=== PATIENT | male | born 1960 | race Caucasian/White ===

== ENCOUNTER 2024-08-23 15:57 | Emergency (ER) | payer OTHER, BC, SELFPAY ==
[2024-08-23 16:02] VITALS: BP 154/63; PULSE 77; TEMP 36.3; O2SAT 98
--- NOTE | 2024-08-23 16:07 | PC.NURSE ---
[address], no S/S of infection observed.
--- NOTE | 2024-08-23 16:22 | ED.GENADUL1 ---
HPI HPI - General Adult General Chief complaint: Skin/Abscess/Foreign Body Stated complaint: REMOVAL OF STITCHES Time Seen by Provider: 08/23/24 16:01 Source: patient Mode of arrival: walk-in History of Present Illness HPI narrative: 64-year-old male presents to the emergency department for suture removal. He had these placed in his left forearm at another hospital's emergency department. He has had no problems. They were replaced 10 days ago. Related Data Allergies Allergy/AdvReac Type Severity Reaction Status Date / Time No Known Drug Allergies Allergy Verified 08/23/24 16:04 Review of Systems ROS Narrative A ten point review of systems is negative except as noted above. PFSH PFSH Social History Little interest or pleasure in doing things: not at all Feeling down, depressed, or hopeless: not at all Exam Narrative Exam Narrative: Nurses note and vital signs reviewed and patient is not hypoxic. General: The patient appears well and in no apparent distress. Patient is resting comfortably on cart. Skin: Warm, dry, no pallor noted. There is no rash noted. Head: Normocephalic, atraumatic Eye: Normal conjunctiva, no drainage Ears, Nose, Mouth, and Throat: oral mucosa is moist. Nares patent. Cardiovascular: Regular Rate and Rhythm Respiratory: Patient is in no distress, no accessory muscle use Back: non-tender, no CVA tenderness bilaterally to percussion. GI: Soft and nontender Musculoskeletal: Left forearm has sutures in place. No surrounding erythema or drainage. I have removed them in their entirety and there is no dehiscence Neurological: A&O, normal speech Psychiatric: Cooperative Constitutional Vital Signs, click to edit/add: Last Vital Signs Temp 97.4 F L 08/23/24 16:02 Pulse 77 08/23/24 16:02 Resp 16 08/23/24 16:02 BP 154/63 H 08/23/24 16:02 Pulse Ox 98 08/23/24 16:02 O2 Del Method Room Air 08/23/24 16:02 Course Vital Signs Vital signs: Vital Signs Temperature 97.4 F L 08/23/24 16:02 Pulse Rate 77 08/23/24 16:02 Respiratory Rate 16 08/23/24 16:02 Blood Pressure 154/63 H 08/23/24 16:02 Pulse Oximetry 98 08/23/24 16:02 Oxygen Delivery Method Room Air 08/23/24 16:02 Temperature 97.4 F L 08/23/24 16:02 Pulse Rate 77 08/23/24 16:02 Respiratory Rate 16 08/23/24 16:02 Blood Pressure 154/63 H 08/23/24 16:02 Pulse Oximetry 98 08/23/24 16:02 Oxygen Delivery Method Room Air 08/23/24 16:02 Medical Decision Making MDM Narrative Medical decision making narrative: Sutures have been removed. Treatment diagnosis and follow-up were discussed with the patient. Discharge Plan Discharge Chief Complaint: Skin/Abscess/Foreign Body Clinical Impression: Visit for suture removal Patient Disposition: Home, Self-Care Time of Disposition Decision: 16:22 Condition: Good Mode of Transportation: Private Vehicle Print Language: Scottish Instructions: Stitches Removal (ED) Referrals: Myla Baez DO [Primary Care Provider] - 1 week
== END 2024-08-23 16:33 | disposition home or self-care (01) ==
PROVIDERS: Emergency Provider Emergency Medicine; PCP Family Medicine
DX: S51.812D Laceration without foreign body of left forearm, subsequent encounter (principal)
CPT/HCPCS: 99281